=== PATIENT | male | born 1950 | race Two or more races ===

== ENCOUNTER 2024-06-25 08:11 | Outpatient (CLI) | payer OTHER ==
[2024-06-25 09:08] LABS: CREATININE SERUM 1.18 mg/dL (0.70-1.30)
== END 2024-06-25 08:33 | disposition home or self-care (01) ==
LOC: LAB 08:11 → EDBD 08:11 → LAB 08:33
PROVIDERS: ATTEND Radiology Diagnostic Radiology
DX: R93.2 Abnormal findings on diagnostic imaging of liver and biliary tract (principal)